=== PATIENT | male | born 1985 | race Caucasian/White ===

== ENCOUNTER 2018-12-02 08:46 | Emergency (ER) | payer OTHER | END 2018-12-02 09:54 | disposition home or self-care (01) | LOC: FTE 09:54 | DX: J00 Acute nasopharyngitis [common cold] (principal); H60.501 Unspecified acute noninfective otitis externa, right ear | CPT/HCPCS: 99283; Z7502 ==

== ENCOUNTER 2019-01-16 09:08 | Emergency (ER) | payer OTHER | END 2019-01-16 11:16 | disposition home or self-care (01) | LOC: FTE 09:08 | DX: R00.2 Palpitations (principal); R05 Cough | CPT/HCPCS: 93005; 99283-25 ==

== ENCOUNTER 2019-01-17 21:30 | Emergency (ER) | payer OTHER ==
[2019-01-18] MEDS: LIDOCAINE/MYLANTA 40 ML BTL PO (00:27)
[2019-01-18] MEDS: FAMOTIDINE 20 MG TAB PO (00:27)
== END 2019-01-18 00:47 | disposition home or self-care (01) ==
LOC: E/R 21:30
DX: K21.9 Gastro-esophageal reflux disease without esophagitis (principal)
CPT/HCPCS: 99283; Z7502

== ENCOUNTER 2019-04-11 10:26 | Emergency (ER) | payer OTHER ==
[2019-04-11 11:01] LABS: ADD MAN DIFF? NO
[2019-04-11 11:02] LABS: WHITE BLOOD COUNT 5.8 10^3/ul (4.8-10.8)
[2019-04-11 11:02] LABS: BASOPHILS % 0.7 % (0.0-2.0); EOSINOPHILS # 0.2 10^3/ul (0.0-0.5); EOSINOPHILS % 2.8 % (0.0-7.0); HEMATOCRIT 46.9 % (42.0-52.0); HEMOGLOBIN 15.6 g/dl (14.0-18.0); LYMPHOCYTES # 2.1 10^3/ul (0.8-2.9); LYMPHOCYTES % 36.8 % (15.0-51.0); MEAN CORPUSCULAR HEMOGLOBIN 29.8 pg (29.0-33.0); MEAN CORPUSCULAR HGB CONC 33.3 g/dl (32.0-37.0); MEAN CORPUSCULAR VOLUME 89.7 fl (82.0-101.0); MEAN PLATELET VOLUME 10.8 fl (7.4-10.4); MONOCYTE # 0.4 10^3/ul (0.3-0.9); MONOCYTES % 7.3 % (0.0-11.0); NEUTROPHILS % 52.2 % (39.0-77.0); PLATELET COUNT 233 10^3/UL (140-415); RED BLOOD COUNT 5.23 10^6/ul (4.70-6.10); RED CELL DISTRIBUTION WIDTH 13.3 % (11.5-14.5)
[2019-04-11] MEDS: IBUPROFEN 800 MG TAB PO (11:11)
[2019-04-11] MEDS: RANITIDINE 150 MG TAB PO (11:11)
[2019-04-11 11:18] LABS: ANION GAP 10 (5-13); BLOOD UREA NITROGEN 24 mg/dl (7-20); CALCIUM 9.7 mg/dl (8.4-10.2); CARBON DIOXIDE 27 mmol/L (21-31); CHLORIDE 106 mmol/L (97-110); CREATININE 0.95 mg/dl (0.61-1.24); Estimated GFR > 60 mL/min (>60); GLUCOSE 98 mg/dl (70-220); POTASSIUM 4.5 mmol/L (3.5-5.1); SODIUM 143 mmol/L (135-144)
[2019-04-11 11:30] LABS: TROPONIN-I < 0.012 ng/ml (0.000-0.120)
== END 2019-04-11 12:40 | disposition home or self-care (01) ==
LOC: E/R 10:26
DX: M79.602 Pain in left arm (principal)
CPT/HCPCS: 36415; 71045; 80048; 84484; 85025; 93005; 99285-25